=== PATIENT | female | born 1970 | race American Indian/Alaskan Native ===

== ENCOUNTER 2021-08-05 12:41 | Outpatient (CLI) | payer OTHER | END 2021-08-05 12:42 | disposition home or self-care (01) | LOC: PF 12:41 | PROVIDERS: ATTEND Internal Medicine | DX: Z02.71 Encounter for disability determination (principal); E11.9 Type 2 diabetes mellitus without complications; I10 Essential (primary) hypertension; E87.5 Hyperkalemia | CPT/HCPCS: 94060 ==